=== PATIENT | male | born 1970 | race Caucasian/White ===

== ENCOUNTER → 2016-12-09 | Outpatient (CLI) | payer MEDICARE ==
[~2016-12-09] MED LIST: AMOXICILLIN500 M2 PO; AMOXICILLIN875 MG PO; ATORVASTATIN 4040 MG PO; ATORVASTATIN CA40 MG PO; CEPHALEXIN500 MG PO; CIPRO 500MG TA500 MG PO; FLEXERIL10 MG PO; GLIPIZIDE 5 MG PO; GLUCOPHAGE 850850 MG PO; HALDOL DECAN50 MG/ML IM; INSULIN GL100 UNITS/ SC; INVEGA SUSTENN156 MG IM; KEFLEX 500MG.500 MG PO; LISINOPRIL 10MG10 MG PO; LISINOPRIL5 MG PO; LORTAB 5/500 501 TAB PO; METFORMIN 500M500 MG PO; METFORMIN HCL1000 MG PO; METFORMIN1000 MG PO; METFORMIN500 MG PO; NAPROSYN 500MG500 MG PO; PRAVASTATIN40 MG PO; PROMETHAZINE HC25 M1 PO; PSYCH MED PO; QUETIAPINE FUM100 MG PO; RANITIDINE HCL150 MG PO; SEROQUEL200 MG PO; SIMVASTATIN40 MG PO
--- NOTE | 2016-12-09 13:43 | RADIOLOGY REPORT PS360 ---
EXAM: THORACIC SPINE-3V SWIMMERS HISTORY: MID BACK PAIN COMPARISON: 04/17/2008 FINDINGS: Mild multilevel degenerative disc disease with small endplate osteophytes and decrease in the disc space with some disc calcification. There is slight loss of height anteriorly of T7 and T8 and appears chronic. No definite acute fracture is apparent. No lytic or blastic change. IMPRESSION: Thoracic spondylosis, no acute finding
== END ==
LOC: RAD 11:32
DX: M54.6 Pain in thoracic spine (principal)